=== PATIENT | female | born 1945 | race Caucasian/White ===

== ENCOUNTER 2017-08-14 19:16 | Inpatient (IN) | payer MEDICARE, OTHER ==
[2017-08-14 21:20] LABS: ADD MAN DIFF? NO
[2017-08-14 21:21] LABS: BASOPHILS % 0.4 % (0.0-2.0); EOSINOPHILS # 0.5 10^3/ul (0.0-0.5); EOSINOPHILS % 5.8 % (0.0-7.0); HEMATOCRIT 35.6 % (37.0-47.0); HEMOGLOBIN 11.5 g/dl (12.0-16.0); LYMPHOCYTES # 2.3 10^3/ul (0.8-2.9); MEAN CORPUSCULAR HEMOGLOBIN 30.3 pg (29.0-33.0); MEAN CORPUSCULAR HGB CONC 32.3 g/dl (32.0-37.0); MEAN CORPUSCULAR VOLUME 93.7 fl (82.0-101.0); MEAN PLATELET VOLUME 11.5 fl (7.4-10.4); MONOCYTE # 0.8 10^3/ul (0.3-0.9); MONOCYTES % 9.8 % (0.0-11.0); NEUTROPHIL # 4.6 10^3/ul (1.6-7.5); NEUTROPHILS % 55.4 % (39.0-77.0); PLATELET COUNT 227 10^3/UL (140-415); RED CELL DISTRIBUTION WIDTH 14.3 % (11.5-14.5)
[2017-08-14 21:21] LABS: WHITE BLOOD COUNT 8.3 10^3/ul (4.8-10.8)
[2017-08-14] MEDS: PIPER-TAZO 3.375 GM IV (PMX) 100 ML IVPB (21:37)
[2017-08-14 21:39] LABS: ALANINE AMINOTRANSFERASE 46 IU/L (13-69); ALBUMIN 3.9 g/dl (3.3-4.9); ALBUMIN/GLOBULIN RATIO 0.95; ALKALINE PHOSPHATASE 295 IU/L (42-121); ANION GAP 16 (8-16); ASPARTATE AMINO TRANSFERASE 39 IU/L (15-46); BILIRUBIN,INDIRECT 0.4 mg/dl (0-1.1); BILIRUBIN,TOTAL 0.4 mg/dl (0.2-1.3); BLOOD UREA NITROGEN 23 mg/dl (7-20); CALCIUM 9.5 mg/dl (8.4-10.2); CARBON DIOXIDE 24 mmol/L (21-31); CHLORIDE 105 mmol/L (97-110); CREATININE 0.98 mg/dl (0.44-1.00); GLUCOSE 212 mg/dl (70-220); LIPASE 184 U/L (23-300); SODIUM 139 mmol/L (135-144)
[2017-08-14 21:41] LABS: INR 0.98; PROTIME 13.1 Sec (11.9-14.9)
[2017-08-14 21:46] LABS: POTASSIUM 5.6 mmol/L (3.5-5.1)
[2017-08-14 22:27] LABS: ADD UMIC YES; UR ASCORBIC ACID NEGATIVE (NEGATIVE); UR BILIRUBIN (Dip) NEGATIVE (NEGATIVE); UR BLOOD (Dip) NEGATIVE (NEGATIVE); UR CLARITY CLOUDY (CLEAR); UR COLOR YELLOW (YELLOW); UR GLUCOSE (Dip) 1+ mg/dL (NEGATIVE); UR KETONES (Dip) NEGATIVE (NEGATIVE); UR LEUKOCYTE ESTERASE (Dip) TRACE Leu/ul (NEGATIVE); UR NITRITE (Dip) NEGATIVE (NEGATIVE); UR RBC 4 /HPF (0-5); UR SPECIFIC GRAVITY (Dip) 1.004 (1.003-1.030); UR SQUAMOUS EPITHELIAL CELL MANY /HPF (FEW); UR TOTAL PROTEIN (Dip) NEGATIVE (NEGATIVE); UR UROBILINOGEN (Dip) NEGATIVE (NEGATIVE); UR WBC 1 /HPF (0-5)
[2017-08-15] MEDS ORDERED: PENDING SANTYL ORDER FOR WOUND CARE XX (02:00)
[2017-08-15] MEDS: ACCU-CHEK XX (02:00)
[2017-08-15] MEDS ORDERED: ACETAMINOPHEN 325 MG TAB PO (02:00)
[2017-08-15] MEDS ORDERED: GLUCOSE GEL 15 GRAM TUBE BUCCAL (02:30)
[2017-08-15] MEDS ORDERED: DEXTROSE 50% 50 ML SYRINGE IV ×2 (02:30)
[2017-08-15] MEDS ORDERED: GLUCOSE GEL 15 GRAM TUBE PO ×2 (02:30)
[2017-08-15] MEDS ORDERED: GLUCAGON 1 MG INJ IM (02:30)
[2017-08-15 03:14] LABS: HEMOGLOBIN A1C 12.2 % (0-5.9)
[2017-08-15] MEDS: morphine 2 MG INJ IV (05:51)
[2017-08-15] MEDS: HEPARIN 5,000 UNIT/0.5 ML VIAL SC ×3 (05:55→22:37)
[2017-08-15] MEDS: INSULIN ASPART [NOVOLOG] 3 ML PEN SC ×7 (08:15→20:27)
[2017-08-15] MEDS ORDERED: INSULIN ASPART [NOVOLOG] 3 ML PEN SC ×5 (08:15→18:00)
[2017-08-15] MEDS: AMLODIPINE 10 MG TAB PO (08:20)
[2017-08-15] MEDS: METOPROLOL 50 MG TAB PO ×2 (09:00→20:25)
[2017-08-15] MEDS: LOSARTAN 50 MG TAB PO (09:25)
[2017-08-15] MEDS: ASPIRIN (EC) 81 MG TAB PO (09:26)
[2017-08-15] MEDS: ATORVASTATIN 20 MG TAB PO (09:26)
[2017-08-15] MEDS: DOCUSATE SODIUM 100 MG CAP PO ×2 (09:27→20:23)
[2017-08-15] MEDS: FUROSEMIDE 20 MG TAB PO ×2 (09:28→20:24)
[2017-08-15] MEDS: PIOGLITAZONE 30 MG TAB PO (10:21)
[2017-08-15] MEDS: BRIMONIDINE 0.2% 5 ML BTL BOTH EYES ×2 (12:20→20:22)
[2017-08-15] MEDS: MUPIROCIN 2% 22 GM OINT TOP (20:22)
[2017-08-15] MEDS: LATANOPROST 0.005% 2.5 ML OPH BOTH EYES (20:23)
[2017-08-15] MEDS: traZODone 50 MG TAB PO (20:24)
[2017-08-15] MEDS: GABAPENTIN 300 MG CAP PO (20:25)
[2017-08-15] MEDS: SODIUM HYPOCHLORITE (1/40) 1 APPLIC BTL IRR ×2 (20:26→20:31)
[2017-08-15] MEDS: INSULIN GLARGINE [LANtus] 3 ML PEN SC (20:30)
[2017-08-16] MEDS: ACCU-CHEK XX (02:00)
[2017-08-16] MEDS ORDERED: ACCU-CHEK XX (02:00)
[2017-08-16 05:44] LABS: ADD MAN DIFF? NO
[2017-08-16 05:47] LABS: BASOPHILS % 0.3 % (0.0-2.0); EOSINOPHILS # 0.4 10^3/ul (0.0-0.5); EOSINOPHILS % 6.3 % (0.0-7.0); HEMATOCRIT 32.9 % (37.0-47.0); HEMOGLOBIN 10.8 g/dl (12.0-16.0); LYMPHOCYTES # 2.7 10^3/ul (0.8-2.9); LYMPHOCYTES % 41.4 % (15.0-51.0); MEAN CORPUSCULAR HEMOGLOBIN 30.4 pg (29.0-33.0); MEAN CORPUSCULAR HGB CONC 32.8 g/dl (32.0-37.0); MEAN CORPUSCULAR VOLUME 92.7 fl (82.0-101.0); MEAN PLATELET VOLUME 10.7 fl (7.4-10.4); MONOCYTE # 0.6 10^3/ul (0.3-0.9); MONOCYTES % 9.5 % (0.0-11.0); NEUTROPHIL # 2.8 10^3/ul (1.6-7.5); NEUTROPHILS % 42.3 % (39.0-77.0); PLATELET COUNT 240 10^3/UL (140-415); RED BLOOD COUNT 3.55 10^6/ul (4.20-5.40); RED CELL DISTRIBUTION WIDTH 14.2 % (11.5-14.5)
[2017-08-16 05:47] LABS: WHITE BLOOD COUNT 6.5 10^3/ul (4.8-10.8)
[2017-08-16 06:34] LABS: ALANINE AMINOTRANSFERASE 42 IU/L (13-69); ALBUMIN 3.3 g/dl (3.3-4.9); ALKALINE PHOSPHATASE 203 IU/L (42-121); ANION GAP 14 (8-16); ASPARTATE AMINO TRANSFERASE 30 IU/L (15-46); BILIRUBIN,INDIRECT 0.3 mg/dl (0-1.1); BILIRUBIN,TOTAL 0.3 mg/dl (0.2-1.3); BLOOD UREA NITROGEN 14 mg/dl (7-20); CALCIUM 9.3 mg/dl (8.4-10.2); CARBON DIOXIDE 27 mmol/L (21-31); CHLORIDE 105 mmol/L (97-110); CHOL/HDL RATIO 3.7 RATIO; CHOLESTEROL 89 mg/dl (100-200); CREATININE 0.79 mg/dl (0.44-1.00); GLUCOSE 92 mg/dl (70-220); HDL CHOLESTEROL 24 mg/dl (33-92); LDL CHOLESTEROL,CALCULATED 45 mg/dl; MAGNESIUM 1.6 mg/dl (1.7-2.5); POTASSIUM 4.2 mmol/L (3.5-5.1); SODIUM 142 mmol/L (135-144); TOTAL PROTEIN 6.6 g/dl (6.1-8.1); TRIGLYCERIDES 100 mg/dl (0-149)
[2017-08-16] MEDS ORDERED: EPHEDrine SULFATE 50 MG/5 ML SYG (07:00)
[2017-08-16] MEDS ORDERED: CEFAZOLIN 1 GM INJ (07:00)
[2017-08-16 07:14] LABS: HEMOGLOBIN A1C 12.2 % (0-5.9)
[2017-08-16] MEDS: INSULIN ASPART [NOVOLOG] 3 ML PEN SC ×7 (08:15→21:00)
[2017-08-16] MEDS: DOCUSATE SODIUM 100 MG CAP PO ×2 (08:17→20:56)
[2017-08-16] MEDS: LOSARTAN 50 MG TAB PO (08:17)
[2017-08-16] MEDS: PIOGLITAZONE 30 MG TAB PO (08:17)
[2017-08-16] MEDS: ATORVASTATIN 20 MG TAB PO (08:18)
[2017-08-16] MEDS: ASPIRIN (EC) 81 MG TAB PO (08:18)
[2017-08-16] MEDS: FUROSEMIDE 20 MG TAB PO ×2 (08:18→20:57)
[2017-08-16] MEDS: METOPROLOL 50 MG TAB PO ×2 (08:18→20:57)
[2017-08-16] MEDS: AMLODIPINE 10 MG TAB PO (08:19)
[2017-08-16] MEDS: SODIUM HYPOCHLORITE (1/40) 1 APPLIC BTL IRR ×4 (09:00→21:00)
[2017-08-16] MEDS: BRIMONIDINE 0.2% 5 ML BTL BOTH EYES ×2 (09:12→21:53)
[2017-08-16] MEDS: MUPIROCIN 2% 22 GM OINT TOP ×3 (09:12→21:53)
[2017-08-16] MEDS: SOD CHLORIDE 0.9% 1,000 ML IV (10:25)
[2017-08-16] MEDS ORDERED: FENTAnyl 50 MCG/ML VIAL (14:56)
[2017-08-16] MEDS ORDERED: LIDOCAINE 100 MG SYRINGE (14:57)
[2017-08-16] MEDS ORDERED: PROPOFOL 20 ML (14:57)
[2017-08-16] MEDS ORDERED: ONDANSETRON 4 MG INJ (15:29)
[2017-08-16] MEDS ORDERED: METOCLOPRAMIDE 10 MG INJ (15:30)
[2017-08-16] MEDS ORDERED: FAMOTIDINE 20 MG INJ (15:30)
[2017-08-16] MEDS: LIDOCAINE 2% (MDV) 20 ML INJ (15:47)
[2017-08-16] MEDS ORDERED: HYDROmorphONE 1 MG/5 ML IV SYRINGE IV ×3 (16:19→16:30)
[2017-08-16] MEDS: HYDROmorphONE 1 MG/5 ML IV SYRINGE IV (16:29)
[2017-08-16] MEDS ORDERED: DIPHENHYDRAMINE 50 MG INJ IV (16:30)
[2017-08-16] MEDS ORDERED: OXYCODONE/ACETAMINOPHEN (5/325) TAB PO ×2 (16:30)
[2017-08-16] MEDS ORDERED: ACETAMINOPHEN 325 MG TAB PO (16:30)
[2017-08-16] MEDS ORDERED: KETOROLAC 15 MG INJ IV (16:30)
[2017-08-16] MEDS ORDERED: ONDANSETRON 4 MG INJ IV ×2 (16:30)
[2017-08-16] MEDS ORDERED: MEPERIDINE 25 MG INJ IV (16:30)
[2017-08-16] MEDS: INSULIN GLARGINE [LANtus] 3 ML PEN SC ×2 (20:00→22:09)
[2017-08-16] MEDS: traZODone 50 MG TAB PO (20:56)
[2017-08-16] MEDS: GABAPENTIN 300 MG CAP PO (20:56)
[2017-08-16] MEDS: LATANOPROST 0.005% 2.5 ML OPH BOTH EYES (20:58)
[2017-08-16] MEDS: HEPARIN 5,000 UNIT/0.5 ML VIAL SC (22:11)
[2017-08-17] MEDS: ACCU-CHEK XX (02:00)
[2017-08-17] MEDS: HEPARIN 5,000 UNIT/0.5 ML VIAL SC ×3 (06:04→22:18)
[2017-08-17] MEDS: PIOGLITAZONE 30 MG TAB PO (08:15)
[2017-08-17] MEDS: BRIMONIDINE 0.2% 5 ML BTL BOTH EYES ×2 (08:15→21:13)
[2017-08-17] MEDS: FUROSEMIDE 20 MG TAB PO ×2 (08:16→21:10)
[2017-08-17] MEDS: ATORVASTATIN 20 MG TAB PO (08:16)
[2017-08-17] MEDS: LOSARTAN 50 MG TAB PO (08:16)
[2017-08-17] MEDS: DOCUSATE SODIUM 100 MG CAP PO ×2 (08:16→21:09)
[2017-08-17] MEDS: AMLODIPINE 10 MG TAB PO (08:17)
[2017-08-17] MEDS: ASPIRIN (EC) 81 MG TAB PO (08:17)
[2017-08-17] MEDS: METOPROLOL 50 MG TAB PO ×2 (08:17→21:00)
[2017-08-17] MEDS: MUPIROCIN 2% 22 GM OINT TOP ×2 (08:18→20:05)
[2017-08-17] MEDS: INSULIN ASPART [NOVOLOG] 3 ML PEN SC ×7 (08:20→21:00)
[2017-08-17] MEDS: SODIUM HYPOCHLORITE (1/40) 1 APPLIC BTL IRR ×4 (08:23→21:00)
[2017-08-17] MEDS: CEFTRIAXONE 1 GM/50 ML (PMX) 50 ML IVPB (17:05)
[2017-08-17] MEDS: traZODone 50 MG TAB PO (21:09)
[2017-08-17] MEDS: GABAPENTIN 300 MG CAP PO (21:09)
[2017-08-17] MEDS: INSULIN GLARGINE [LANtus] 3 ML PEN SC (21:12)
[2017-08-17] MEDS: LATANOPROST 0.005% 2.5 ML OPH BOTH EYES (22:17)
[2017-08-17] MEDS: HYDROCODONE/APAP (5/325) TAB PO (22:27)
[2017-08-18] MEDS: ACCU-CHEK XX (02:00)
[2017-08-18] MEDS: HEPARIN 5,000 UNIT/0.5 ML VIAL SC ×2 (05:50→14:00)
[2017-08-18] MEDS: INSULIN ASPART [NOVOLOG] 3 ML PEN SC ×6 (08:08→17:41)
[2017-08-18] MEDS: BRIMONIDINE 0.2% 5 ML BTL BOTH EYES (08:13)
[2017-08-18] MEDS: SODIUM HYPOCHLORITE (1/40) 1 APPLIC BTL IRR ×3 (08:50→09:00)
[2017-08-18] MEDS: PIOGLITAZONE 30 MG TAB PO (08:51)
[2017-08-18] MEDS: ATORVASTATIN 20 MG TAB PO (08:51)
[2017-08-18] MEDS: DOCUSATE SODIUM 100 MG CAP PO (08:51)
[2017-08-18] MEDS: ASPIRIN (EC) 81 MG TAB PO (08:54)
[2017-08-18] MEDS: FUROSEMIDE 20 MG TAB PO (08:55)
[2017-08-18] MEDS: MUPIROCIN 2% 22 GM OINT TOP (09:00)
[2017-08-18] MEDS: METOPROLOL 50 MG TAB PO (09:00)
[2017-08-18] MEDS: morphine LIQ (10 MG/5 ML) CUP PO (11:03)
[2017-08-18] MEDS: LOSARTAN 50 MG TAB PO (11:16)
[2017-08-18] MEDS: AMLODIPINE 10 MG TAB PO (11:16)
[2017-08-18] MEDS: CEFTRIAXONE 1 GM/50 ML (PMX) 50 ML IVPB (16:30)
== END 2017-08-18 18:55 | disposition home health service (06) | DRG 623 ==
LOC: E/R 19:16 → MS2 22:17
PROC: 0JBR0ZZ Excision of Left Foot Subcutaneous Tissue and Fascia, Open Approach (ICD-10-PCS; principal; 2017-08-16 15:16)
DX: E11.621 Type 2 diabetes mellitus with foot ulcer (principal); L03.116 Cellulitis of left lower limb; Z68.42 Body mass index [BMI] 45.0-49.9, adult; L02.416 Cutaneous abscess of left lower limb; E11.65 Type 2 diabetes mellitus with hyperglycemia; E11.42 Type 2 diabetes mellitus with diabetic polyneuropathy; E78.5 Hyperlipidemia, unspecified; B95.61 Methicillin susceptible Staphylococcus aureus infection as the cause of diseases classified elsewhere; I10 Essential (primary) hypertension; E66.01 Morbid (severe) obesity due to excess calories; L97.529 Non-pressure chronic ulcer of other part of left foot with unspecified severity; Z85.3 Personal history of malignant neoplasm of breast; Z90.12 Acquired absence of left breast and nipple; Z79.4 Long term (current) use of insulin; Z79.82 Long term (current) use of aspirin
CPT/HCPCS: 36415; 71045; 71250; 73610; 73718; 80053; 80061; 81001; 82962; 83036; 83690; 83735; 84100; 85025; 85610; 85730; 87040; 87070; 87075; 87102; 87116; 96365; 96366; 97161; 99285-25

== ENCOUNTER 2017-09-07 22:00 | Emergency (ER) | payer MEDICARE, OTHER ==
[2017-09-07] MEDS: morphine 2 MG INJ IV (23:09)
[2017-09-07] MEDS: ONDANSETRON 4 MG INJ IV (23:10)
[2017-09-07 23:11] LABS: ADD MAN DIFF? NO
[2017-09-07 23:13] LABS: WHITE BLOOD COUNT 10.1 10^3/ul (4.8-10.8)
[2017-09-07 23:13] LABS: ABNORMAL IP MESSAGE 1; BASOPHILS % 0.4 % (0.0-2.0); EOSINOPHILS # 0.2 10^3/ul (0.0-0.5); EOSINOPHILS % 1.5 % (0.0-7.0); HEMATOCRIT 35.7 % (37.0-47.0); HEMOGLOBIN 11.8 g/dl (12.0-16.0); LYMPHOCYTES # 2.5 10^3/ul (0.8-2.9); LYMPHOCYTES % 24.3 % (15.0-51.0); MEAN CORPUSCULAR HEMOGLOBIN 30.7 pg (29.0-33.0); MEAN CORPUSCULAR HGB CONC 33.1 g/dl (32.0-37.0); MEAN PLATELET VOLUME 11.2 fl (7.4-10.4); MONOCYTE # 1.5 10^3/ul (0.3-0.9); MONOCYTES % 14.9 % (0.0-11.0); NEUTROPHIL # 5.9 10^3/ul (1.6-7.5); NEUTROPHILS % 58.6 % (39.0-77.0); NUCLEATED RED BLOOD CELLS% 0.2 /100WBC (0.0-0.0); PLATELET COUNT 121 10^3/UL (140-415); RED BLOOD COUNT 3.84 10^6/ul (4.20-5.40); RED CELL DISTRIBUTION WIDTH 14.9 % (11.5-14.5)
[2017-09-07 23:28] LABS: POSITIVE DIFF @See below
[2017-09-07 23:40] LABS: ALANINE AMINOTRANSFERASE 52 IU/L (13-69); ALBUMIN 3.5 g/dl (3.3-4.9); ALBUMIN/GLOBULIN RATIO 0.97; ALKALINE PHOSPHATASE 158 IU/L (42-121); ANION GAP 12 (8-16); ASPARTATE AMINO TRANSFERASE 84 IU/L (15-46); BILIRUBIN,INDIRECT 0.7 mg/dl (0-1.1); BILIRUBIN,TOTAL 0.7 mg/dl (0.2-1.3); BLOOD UREA NITROGEN 18 mg/dl (7-20); CALCIUM 8.7 mg/dl (8.4-10.2); CARBON DIOXIDE 25 mmol/L (21-31); CHLORIDE 103 mmol/L (97-110); CREATININE 0.75 mg/dl (0.44-1.00); GLUCOSE 239 mg/dl (70-220); LIPASE 60 U/L (23-300); POTASSIUM 4.5 mmol/L (3.5-5.1); SODIUM 135 mmol/L (135-144); TOTAL PROTEIN 7.1 g/dl (6.1-8.1)
[2017-09-08 00:51] LABS: URINE PH (Dip) POC 5.5 (5.0-8.5)
[2017-09-08 00:51] LABS: URINE BLOOD (Dip) POC Trace-lysed (NEGATIVE); URINE KETONES (Dip) POC Trace (NEGATIVE); URINE LEUKOCYTE EST (Dip) POC 1+ (NEGATIVE); URINE NITRITE (Dip) POC Negative (NEGATIVE); URINE TOTAL PROTEIN POC 1+ (NEGATIVE)
[2017-09-08 01:06] LABS: OCCULT BLOOD STOOL NEGATIVE (NEGATIVE)
[2017-09-08] MEDS: metroNIDAZOLE 500 MG TAB PO (01:52)
[2017-09-08] MEDS: CIPROFLOXACIN 500 MG TAB PO (01:52)
== END 2017-09-08 02:45 | disposition home or self-care (01) ==
LOC: E/R 09-08 02:45
DX: K62.89 Other specified diseases of anus and rectum (principal); N39.0 Urinary tract infection, site not specified; D64.9 Anemia, unspecified; D69.6 Thrombocytopenia, unspecified; R94.5 Abnormal results of liver function studies; I10 Essential (primary) hypertension; E11.9 Type 2 diabetes mellitus without complications; E66.8 Other obesity; Z85.3 Personal history of malignant neoplasm of breast; Z79.4 Long term (current) use of insulin; Z79.82 Long term (current) use of aspirin; Z68.42 Body mass index [BMI] 45.0-49.9, adult
CPT/HCPCS: 36415; 74176; 80053; 81003; 82270; 82962; 83690; 85025; 87045; 96374; 96375; 99285-25

== ENCOUNTER 2017-09-17 13:44 | Inpatient (IN) | payer MEDICARE, OTHER ==
[2017-09-17] MEDS: ONDANSETRON 4 MG INJ IV ×2 (17:34→21:31)
[2017-09-17 18:16] LABS: ADD UMIC YES; UR ASCORBIC ACID NEGATIVE (NEGATIVE); UR BACTERIA FEW /HPF (NONE SEEN); UR BILIRUBIN (Dip) NEGATIVE (NEGATIVE); UR BLOOD (Dip) NEGATIVE (NEGATIVE); UR CLARITY CLEAR (CLEAR); UR COLOR YELLOW (YELLOW); UR GLUCOSE (Dip) 1+ mg/dL (NEGATIVE); UR KETONES (Dip) TRACE mg/dL (NEGATIVE); UR LEUKOCYTE ESTERASE (Dip) 1+ Leu/ul (NEGATIVE); UR MUCUS FEW /HPF (NONE SEEN); UR NITRITE (Dip) NEGATIVE (NEGATIVE); UR RBC 1 /HPF (0-5); UR SPECIFIC GRAVITY (Dip) 1.015 (1.003-1.030); UR SQUAMOUS EPITHELIAL CELL FEW /HPF (FEW); UR TOTAL PROTEIN (Dip) NEGATIVE (NEGATIVE); UR UROBILINOGEN (Dip) 1+ mg/dL (NEGATIVE); UR WBC 3 /HPF (0-5)
[2017-09-17 18:36] LABS: ADD MAN DIFF? NO
[2017-09-17 18:40] LABS: BASOPHILS % 0.5 % (0.0-2.0); EOSINOPHILS # 0.2 10^3/ul (0.0-0.5); EOSINOPHILS % 1.8 % (0.0-7.0); HEMATOCRIT 38.8 % (37.0-47.0); HEMOGLOBIN 12.4 g/dl (12.0-16.0); LYMPHOCYTES # 2.2 10^3/ul (0.8-2.9); LYMPHOCYTES % 26.3 % (15.0-51.0); MEAN CORPUSCULAR HEMOGLOBIN 29.7 pg (29.0-33.0); MEAN PLATELET VOLUME 10.5 fl (7.4-10.4); MONOCYTE # 1.2 10^3/ul (0.3-0.9); MONOCYTES % 13.9 % (0.0-11.0); NEUTROPHIL # 4.8 10^3/ul (1.6-7.5); NEUTROPHILS % 57.3 % (39.0-77.0); PLATELET COUNT 210 10^3/UL (140-415); RED BLOOD COUNT 4.17 10^6/ul (4.20-5.40); RED CELL DISTRIBUTION WIDTH 15.3 % (11.5-14.5)
[2017-09-17 18:40] LABS: WHITE BLOOD COUNT 8.4 10^3/ul (4.8-10.8)
[2017-09-17 18:58] LABS: ALANINE AMINOTRANSFERASE 22 IU/L (13-69); ALBUMIN 3.5 g/dl (3.3-4.9); ALBUMIN/GLOBULIN RATIO 0.92; ALKALINE PHOSPHATASE 115 IU/L (42-121); ANION GAP 16 (8-16); ASPARTATE AMINO TRANSFERASE 26 IU/L (15-46); BILIRUBIN,INDIRECT 0.8 mg/dl (0-1.1); BILIRUBIN,TOTAL 0.8 mg/dl (0.2-1.3); BLOOD UREA NITROGEN 15 mg/dl (7-20); CALCIUM 9.1 mg/dl (8.4-10.2); CARBON DIOXIDE 22 mmol/L (21-31); CHLORIDE 107 mmol/L (97-110); CREATININE 0.91 mg/dl (0.44-1.00); GLUCOSE 193 mg/dl (70-220); LIPASE 113 U/L (23-300); POTASSIUM 4.4 mmol/L (3.5-5.1); SODIUM 141 mmol/L (135-144); TOTAL PROTEIN 7.3 g/dl (6.1-8.1)
[2017-09-17 19:10] LABS: TROPONIN-I < 0.010 ng/ml (0.000-0.120)
[2017-09-17] MEDS: morphine 4 MG/ML VIAL IV (20:55)
[2017-09-17] MEDS: CEFTRIAXONE 1 GM/50 ML (PMX) 50 ML IVPB (20:55)
[2017-09-17 21:44] LABS: LACTIC ACID 1.9 mmol/L (0.5-2.0)
[2017-09-17] MEDS ORDERED: ONDANSETRON 4 MG INJ IV (23:00)
[2017-09-17] MEDS: DEXTROSE 5%-0.45% NACL 1,000 ML IV (23:49)
[2017-09-18] MEDS ORDERED: LIDOCAINE 2% (SDV) 5 ML INJ
[2017-09-18] MEDS ORDERED: FENTAnyl 50 MCG/ML VIAL (00:52)
[2017-09-18] MEDS ORDERED: ROPIVACAINE 0.5 % 30 ML VIAL (00:52)
[2017-09-18] MEDS: INSULIN ASPART [NOVOLOG] 3 ML PEN SC ×7 (01:00→20:40)
[2017-09-18] MEDS ORDERED: SUCCINYLCHOLINE CHLORIDE 100 MG/5 ML SYG IV (01:30)
[2017-09-18] MEDS ORDERED: METOCLOPRAMIDE 10 MG INJ IV (01:30)
[2017-09-18] MEDS ORDERED: CEFAZOLIN 1 GM INJ (01:30)
[2017-09-18] MEDS ORDERED: FENTAnyl 50 MCG/ML VIAL IV (01:30)
[2017-09-18] MEDS ORDERED: SUGAMMADEX SODIUM 200 MG/2 ML VIAL IV (01:30)
[2017-09-18] MEDS ORDERED: ONDANSETRON 4 MG INJ IV (01:30)
[2017-09-18] MEDS ORDERED: DIPHENHYDRAMINE 50 MG INJ IV (01:30)
[2017-09-18] MEDS ORDERED: PROPOFOL 20 ML (01:30)
[2017-09-18] MEDS ORDERED: ROCURONIUM 50 MG INJ (01:30)
[2017-09-18] MEDS ORDERED: MEPERIDINE 25 MG INJ IV (01:30)
[2017-09-18] MEDS ORDERED: HYDROmorphONE 1 MG/5 ML IV SYRINGE IV ×2 (01:30)
[2017-09-18] MEDS ORDERED: ALBUTEROL 0.083% (NEB) 2.5 MG/3 ML AMP HHN (01:30)
[2017-09-18] MEDS: FENTAnyl 50 MCG/ML VIAL IV (02:39)
[2017-09-18] MEDS: DEXTROSE 5%-0.45% NACL 1,000 ML IV ×2 (04:25→08:56)
[2017-09-18] MEDS: morphine 2 MG INJ IV (12:46)
[2017-09-18] MEDS ORDERED: DULAGLUTIDE 0.75 MG SQ (15:30)
[2017-09-18] MEDS ORDERED: GLUCOSE GEL 15 GRAM TUBE PO ×2 (15:30)
[2017-09-18] MEDS ORDERED: GLUCAGON 1 MG INJ IM (15:30)
[2017-09-18] MEDS ORDERED: LOSARTAN 50 MG TAB PO (15:30)
[2017-09-18] MEDS ORDERED: DEXTROSE 50% 50 ML SYRINGE IV (15:30)
[2017-09-18] MEDS: BENAZEPRIL 40 MG TAB PO (15:38)
[2017-09-18] MEDS: ENOXAPARIN 40 MG/0.4 ML SYG SC (15:39)
[2017-09-18] MEDS ORDERED: CIPROFLOXACIN 500 MG TAB PO (18:00)
[2017-09-18] MEDS: PIOGLITAZONE 30 MG TAB PO (18:01)
[2017-09-18] MEDS: [UNRECOGNIZED DRUG - REMARK] XX (20:30)
[2017-09-18] MEDS: ATORVASTATIN 20 MG TAB PO (20:35)
[2017-09-18] MEDS: GABAPENTIN 300 MG CAP PO (20:35)
[2017-09-18] MEDS: BIMATOPROST 0.01% 2.5 ML BTL BOTH EYES (20:39)
[2017-09-18] MEDS: DOCUSATE SODIUM 100 MG CAP PO (20:39)
[2017-09-18] MEDS: BRIMONIDINE 0.2% 5 ML BTL BOTH EYES (20:39)
[2017-09-18] MEDS: traZODone 50 MG TAB PO (20:40)
[2017-09-18] MEDS: INSULIN GLARGINE [LANTus] (100 UNITS/ML) SYG SC (20:53)
[2017-09-18] MEDS ORDERED: INSULIN GLARGINE [LANTus] (100 UNITS/ML) SYG SC (21:00)
[2017-09-18] MEDS: METOPROLOL 50 MG TAB PO (21:00)
[2017-09-19] MEDS: [UNRECOGNIZED DRUG - REMARK] XX (04:30)
[2017-09-19 05:11] LABS: ADD MAN DIFF? NO
[2017-09-19 05:14] LABS: WHITE BLOOD COUNT 5.4 10^3/ul (4.8-10.8)
[2017-09-19 05:14] LABS: BASOPHILS % 0.6 % (0.0-2.0); EOSINOPHILS # 0.3 10^3/ul (0.0-0.5); EOSINOPHILS % 5.2 % (0.0-7.0); HEMATOCRIT 32.8 % (37.0-47.0); HEMOGLOBIN 10.5 g/dl (12.0-16.0); LYMPHOCYTES # 1.5 10^3/ul (0.8-2.9); LYMPHOCYTES % 28.2 % (15.0-51.0); MEAN CORPUSCULAR HEMOGLOBIN 29.6 pg (29.0-33.0); MEAN CORPUSCULAR VOLUME 92.4 fl (82.0-101.0); MEAN PLATELET VOLUME 10.8 fl (7.4-10.4); MONOCYTE # 0.8 10^3/ul (0.3-0.9); MONOCYTES % 14.2 % (0.0-11.0); NEUTROPHIL # 2.8 10^3/ul (1.6-7.5); NEUTROPHILS % 51.2 % (39.0-77.0); PLATELET COUNT 184 10^3/UL (140-415); RED BLOOD COUNT 3.55 10^6/ul (4.20-5.40); RED CELL DISTRIBUTION WIDTH 15.4 % (11.5-14.5)
[2017-09-19 06:01] LABS: ANION GAP 9 (8-16); BLOOD UREA NITROGEN 12 mg/dl (7-20); CALCIUM 8.3 mg/dl (8.4-10.2); CARBON DIOXIDE 25 mmol/L (21-31); CHLORIDE 105 mmol/L (97-110); CREATININE 0.99 mg/dl (0.44-1.00); GLUCOSE 120 mg/dl (70-220); POTASSIUM 3.6 mmol/L (3.5-5.1); SODIUM 135 mmol/L (135-144)
[2017-09-19] MEDS: INSULIN ASPART [NOVOLOG] 3 ML PEN SC ×9 (07:20→21:00)
[2017-09-19] MEDS: BRIMONIDINE 0.2% 5 ML BTL BOTH EYES ×2 (08:21→20:51)
[2017-09-19] MEDS: MELOXICAM 15 MG TAB PO (08:22)
[2017-09-19] MEDS: LINAGLIPTIN 5 MG TABLET PO (08:22)
[2017-09-19] MEDS: PIOGLITAZONE 30 MG TAB PO (08:22)
[2017-09-19] MEDS: DOCUSATE SODIUM 100 MG CAP PO ×3 (08:22→20:50)
[2017-09-19] MEDS: BENAZEPRIL 40 MG TAB PO (08:23)
[2017-09-19] MEDS: METOPROLOL 50 MG TAB PO ×3 (08:23→20:54)
[2017-09-19] MEDS: ENOXAPARIN 40 MG/0.4 ML SYG SC (08:24)
[2017-09-19] MEDS: SOD CHLORIDE 0.9% 1,000 ML IV ×3 (11:28→21:11)
[2017-09-19] MEDS: ATORVASTATIN 20 MG TAB PO (20:52)
[2017-09-19] MEDS: traZODone 50 MG TAB PO (20:53)
[2017-09-19] MEDS: GABAPENTIN 300 MG CAP PO (20:53)
[2017-09-19] MEDS: BIMATOPROST 0.01% 2.5 ML BTL BOTH EYES (21:00)
[2017-09-19] MEDS: INSULIN GLARGINE [LANTus] (100 UNITS/ML) SYG SC (21:07)
[2017-09-19] MEDS: morphine 2 MG INJ IV (23:00)
[2017-09-20] MEDS: SOD CHLORIDE 0.9% 1,000 ML IV ×3 (03:30→19:30)
[2017-09-20 05:46] LABS: ADD MAN DIFF? NO
[2017-09-20 05:59] LABS: WHITE BLOOD COUNT 5.6 10^3/ul (4.8-10.8)
[2017-09-20 05:59] LABS: BASOPHILS % 0.5 % (0.0-2.0); EOSINOPHILS # 0.3 10^3/ul (0.0-0.5); EOSINOPHILS % 5.7 % (0.0-7.0); HEMATOCRIT 29.5 % (37.0-47.0); HEMOGLOBIN 9.6 g/dl (12.0-16.0); LYMPHOCYTES # 1.7 10^3/ul (0.8-2.9); LYMPHOCYTES % 30.3 % (15.0-51.0); MEAN CORPUSCULAR HEMOGLOBIN 29.8 pg (29.0-33.0); MEAN CORPUSCULAR HGB CONC 32.5 g/dl (32.0-37.0); MEAN CORPUSCULAR VOLUME 91.6 fl (82.0-101.0); MONOCYTE # 0.7 10^3/ul (0.3-0.9); NEUTROPHIL # 2.8 10^3/ul (1.6-7.5); NEUTROPHILS % 50.1 % (39.0-77.0); PLATELET COUNT 161 10^3/UL (140-415); RED BLOOD COUNT 3.22 10^6/ul (4.20-5.40); RED CELL DISTRIBUTION WIDTH 15.3 % (11.5-14.5)
[2017-09-20 06:48] LABS: ANION GAP 7 (8-16); BLOOD UREA NITROGEN 11 mg/dl (7-20); CALCIUM 7.2 mg/dl (8.4-10.2); CARBON DIOXIDE 22 mmol/L (21-31); CHLORIDE 114 mmol/L (97-110); CREATININE 0.73 mg/dl (0.44-1.00); GLUCOSE 101 mg/dl (70-220); POTASSIUM 3.2 mmol/L (3.5-5.1); SODIUM 140 mmol/L (135-144)
[2017-09-20] MEDS: INSULIN ASPART [NOVOLOG] 3 ML PEN SC ×7 (07:25→20:20)
[2017-09-20] MEDS: BRIMONIDINE 0.2% 5 ML BTL BOTH EYES ×2 (08:24→20:48)
[2017-09-20] MEDS: DOCUSATE SODIUM 100 MG CAP PO ×2 (08:25→20:49)
[2017-09-20] MEDS: MELOXICAM 15 MG TAB PO (08:25)
[2017-09-20] MEDS: PIOGLITAZONE 30 MG TAB PO (08:25)
[2017-09-20] MEDS: LINAGLIPTIN 5 MG TABLET PO (08:25)
[2017-09-20] MEDS: METOPROLOL 50 MG TAB PO (08:26)
[2017-09-20] MEDS: ENOXAPARIN 40 MG/0.4 ML SYG SC (08:31)
[2017-09-20] MEDS: POTASSIUM CHLORIDE (SR) 10 MEQ TAB PO (13:23)
[2017-09-20 14:13] LABS: TROPONIN-I < 0.010 ng/ml (0.000-0.120)
[2017-09-20 16:43] LABS: ADD UMIC YES; UR ASCORBIC ACID NEGATIVE (NEGATIVE); UR BACTERIA FEW /HPF (NONE SEEN); UR BILIRUBIN (Dip) NEGATIVE (NEGATIVE); UR BLOOD (Dip) NEGATIVE (NEGATIVE); UR CLARITY CLOUDY (CLEAR); UR COLOR YELLOW (YELLOW); UR GLUCOSE (Dip) NEGATIVE (NEGATIVE); UR KETONES (Dip) NEGATIVE (NEGATIVE); UR LEUKOCYTE ESTERASE (Dip) 1+ Leu/ul (NEGATIVE); UR NITRITE (Dip) NEGATIVE (NEGATIVE); UR RBC 1 /HPF (0-5); UR SPECIFIC GRAVITY (Dip) 1.006 (1.003-1.030); UR SQUAMOUS EPITHELIAL CELL FEW /HPF (FEW); UR TOTAL PROTEIN (Dip) NEGATIVE (NEGATIVE); UR UROBILINOGEN (Dip) NEGATIVE (NEGATIVE); UR WBC 2 /HPF (0-5)
[2017-09-20] MEDS: INSULIN GLARGINE [LANTus] (100 UNITS/ML) SYG SC (20:47)
[2017-09-20] MEDS: traZODone 50 MG TAB PO (20:49)
[2017-09-20] MEDS: GABAPENTIN 300 MG CAP PO (20:49)
[2017-09-20] MEDS: ATORVASTATIN 20 MG TAB PO (20:49)
[2017-09-20] MEDS: BIMATOPROST 0.01% 2.5 ML BTL BOTH EYES (20:50)
[2017-09-21] MEDS: SOD CHLORIDE 0.9% 1,000 ML IV ×2 (03:30→11:30)
[2017-09-21] MEDS: INSULIN ASPART [NOVOLOG] 3 ML PEN SC ×7 (07:25→21:00)
[2017-09-21 07:47] LABS: ADD MAN DIFF? NO
[2017-09-21 07:54] LABS: WHITE BLOOD COUNT 7.2 10^3/ul (4.8-10.8)
[2017-09-21 07:54] LABS: BASOPHILS % 0.6 % (0.0-2.0); EOSINOPHILS # 0.3 10^3/ul (0.0-0.5); EOSINOPHILS % 3.8 % (0.0-7.0); HEMATOCRIT 32.3 % (37.0-47.0); HEMOGLOBIN 10.4 g/dl (12.0-16.0); LYMPHOCYTES # 2.5 10^3/ul (0.8-2.9); LYMPHOCYTES % 34.4 % (15.0-51.0); MEAN CORPUSCULAR HGB CONC 32.2 g/dl (32.0-37.0); MEAN CORPUSCULAR VOLUME 93.1 fl (82.0-101.0); MONOCYTE # 0.9 10^3/ul (0.3-0.9); MONOCYTES % 11.9 % (0.0-11.0); NEUTROPHIL # 3.5 10^3/ul (1.6-7.5); NEUTROPHILS % 48.9 % (39.0-77.0); PLATELET COUNT 176 10^3/UL (140-415); RED BLOOD COUNT 3.47 10^6/ul (4.20-5.40); RED CELL DISTRIBUTION WIDTH 15.5 % (11.5-14.5)
[2017-09-21] MEDS: DOCUSATE SODIUM 100 MG CAP PO ×2 (08:10→21:00)
[2017-09-21] MEDS: PIOGLITAZONE 30 MG TAB PO (08:10)
[2017-09-21] MEDS: MELOXICAM 15 MG TAB PO (08:10)
[2017-09-21] MEDS: BRIMONIDINE 0.2% 5 ML BTL BOTH EYES ×2 (08:11→21:15)
[2017-09-21] MEDS: LINAGLIPTIN 5 MG TABLET PO (08:11)
[2017-09-21 08:13] LABS: ANION GAP 6 (8-16); BLOOD UREA NITROGEN 10 mg/dl (7-20); CALCIUM 8.3 mg/dl (8.4-10.2); CARBON DIOXIDE 24 mmol/L (21-31); CHLORIDE 114 mmol/L (97-110); GLUCOSE 82 mg/dl (70-220); POTASSIUM 4.1 mmol/L (3.5-5.1); SODIUM 140 mmol/L (135-144)
[2017-09-21] MEDS: ENOXAPARIN 40 MG/0.4 ML SYG SC (08:20)
[2017-09-21] MEDS ORDERED: LOPERAMIDE 2 MG CAP PO (13:30)
[2017-09-21] MEDS: BIMATOPROST 0.01% 2.5 ML BTL BOTH EYES (21:16)
[2017-09-21] MEDS: GABAPENTIN 300 MG CAP PO (21:16)
[2017-09-21] MEDS: traZODone 50 MG TAB PO (21:16)
[2017-09-21] MEDS: ATORVASTATIN 20 MG TAB PO (21:16)
[2017-09-21] MEDS: INSULIN GLARGINE [LANTus] (100 UNITS/ML) SYG SC (21:20)
[2017-09-21] MEDS ORDERED: morphine LIQ (10 MG/5 ML) CUP PO (22:30)
[2017-09-21] MEDS ORDERED: morphine 2 MG INJ IV (23:00)
[2017-09-22] MEDS: INSULIN ASPART [NOVOLOG] 3 ML PEN SC ×6 (07:25→16:51)
[2017-09-22 08:13] LABS: ADD MAN DIFF? NO
[2017-09-22 08:16] LABS: BASOPHILS % 0.4 % (0.0-2.0); EOSINOPHILS # 0.3 10^3/ul (0.0-0.5); EOSINOPHILS % 3.6 % (0.0-7.0); HEMATOCRIT 32.2 % (37.0-47.0); HEMOGLOBIN 10.4 g/dl (12.0-16.0); LYMPHOCYTES # 2.7 10^3/ul (0.8-2.9); LYMPHOCYTES % 38.9 % (15.0-51.0); MEAN CORPUSCULAR HEMOGLOBIN 30.1 pg (29.0-33.0); MEAN CORPUSCULAR HGB CONC 32.3 g/dl (32.0-37.0); MEAN CORPUSCULAR VOLUME 93.1 fl (82.0-101.0); MEAN PLATELET VOLUME 10.8 fl (7.4-10.4); MONOCYTE # 0.8 10^3/ul (0.3-0.9); MONOCYTES % 11.1 % (0.0-11.0); NEUTROPHIL # 3.2 10^3/ul (1.6-7.5); NEUTROPHILS % 45.7 % (39.0-77.0); PLATELET COUNT 169 10^3/UL (140-415); RED BLOOD COUNT 3.46 10^6/ul (4.20-5.40); RED CELL DISTRIBUTION WIDTH 15.8 % (11.5-14.5)
[2017-09-22] MEDS: BRIMONIDINE 0.2% 5 ML BTL BOTH EYES ×2 (08:28→20:55)
[2017-09-22] MEDS: PIOGLITAZONE 30 MG TAB PO (08:36)
[2017-09-22] MEDS: LINAGLIPTIN 5 MG TABLET PO (08:36)
[2017-09-22] MEDS: DOCUSATE SODIUM 100 MG CAP PO ×3 (08:36→20:55)
[2017-09-22] MEDS: MELOXICAM 15 MG TAB PO (08:36)
[2017-09-22] MEDS: ENOXAPARIN 40 MG/0.4 ML SYG SC (08:37)
[2017-09-22 08:46] LABS: ANION GAP 7 (8-16); BLOOD UREA NITROGEN 10 mg/dl (7-20); CALCIUM 8.7 mg/dl (8.4-10.2); CARBON DIOXIDE 26 mmol/L (21-31); CHLORIDE 113 mmol/L (97-110); CREATININE 0.71 mg/dl (0.44-1.00); GLUCOSE 83 mg/dl (70-220); POTASSIUM 4.1 mmol/L (3.5-5.1); SODIUM 142 mmol/L (135-144)
[2017-09-22] MEDS: GLUCOSE GEL 15 GRAM TUBE BUCCAL (17:00)
[2017-09-22] MEDS: DEXTROSE 50% 50 ML SYRINGE IV (17:03)
[2017-09-22] MEDS: GABAPENTIN 300 MG CAP PO (20:55)
[2017-09-22] MEDS: BIMATOPROST 0.01% 2.5 ML BTL BOTH EYES (20:55)
[2017-09-22] MEDS: ATORVASTATIN 20 MG TAB PO (20:55)
[2017-09-22] MEDS: traZODone 50 MG TAB PO (20:55)
[2017-09-22] MEDS: Insulin NOVOLOG SS MILD Algorithm (SS with meals and bedtime) SC (20:57)
[2017-09-22] MEDS: INSULIN GLARGINE [LANTus] (100 UNITS/ML) SYG SC (20:57)
[2017-09-23] MEDS: ACCUCHECK AT 2AM (Patients on SS coverage) XX ×2 (01:56→20:19)
[2017-09-23 06:40] LABS: ADD MAN DIFF? NO
[2017-09-23 06:50] LABS: WHITE BLOOD COUNT 6.5 10^3/ul (4.8-10.8)
[2017-09-23 06:50] LABS: BASOPHILS % 0.5 % (0.0-2.0); EOSINOPHILS # 0.3 10^3/ul (0.0-0.5); EOSINOPHILS % 3.8 % (0.0-7.0); HEMATOCRIT 32.7 % (37.0-47.0); HEMOGLOBIN 10.5 g/dl (12.0-16.0); LYMPHOCYTES # 2.6 10^3/ul (0.8-2.9); LYMPHOCYTES % 40.6 % (15.0-51.0); MEAN CORPUSCULAR HEMOGLOBIN 29.7 pg (29.0-33.0); MEAN CORPUSCULAR HGB CONC 32.1 g/dl (32.0-37.0); MEAN CORPUSCULAR VOLUME 92.4 fl (82.0-101.0); MEAN PLATELET VOLUME 11.2 fl (7.4-10.4); MONOCYTE # 0.7 10^3/ul (0.3-0.9); MONOCYTES % 11.4 % (0.0-11.0); NEUTROPHIL # 2.8 10^3/ul (1.6-7.5); NEUTROPHILS % 43.4 % (39.0-77.0); PLATELET COUNT 166 10^3/UL (140-415); RED BLOOD COUNT 3.54 10^6/ul (4.20-5.40); RED CELL DISTRIBUTION WIDTH 15.9 % (11.5-14.5)
[2017-09-23 07:25] LABS: ANION GAP 5 (8-16); BLOOD UREA NITROGEN 11 mg/dl (7-20); CALCIUM 8.6 mg/dl (8.4-10.2); CARBON DIOXIDE 25 mmol/L (21-31); CHLORIDE 113 mmol/L (97-110); CREATININE 0.85 mg/dl (0.44-1.00); GLUCOSE 119 mg/dl (70-220); POTASSIUM 4.2 mmol/L (3.5-5.1); SODIUM 139 mmol/L (135-144)
[2017-09-23] MEDS: INSULIN ASPART [NOVOLOG] 3 ML PEN SC ×3 (08:16→18:00)
[2017-09-23] MEDS: Insulin NOVOLOG SS MILD Algorithm (SS with meals and bedtime) SC ×4 (08:19→20:07)
[2017-09-23] MEDS: PIOGLITAZONE 30 MG TAB PO (08:20)
[2017-09-23] MEDS: ENOXAPARIN 40 MG/0.4 ML SYG SC (08:20)
[2017-09-23] MEDS: MELOXICAM 15 MG TAB PO (08:20)
[2017-09-23] MEDS: LINAGLIPTIN 5 MG TABLET PO (08:20)
[2017-09-23] MEDS: BRIMONIDINE 0.2% 5 ML BTL BOTH EYES ×2 (08:21→20:07)
[2017-09-23] MEDS: DOCUSATE SODIUM 100 MG CAP PO (08:28)
[2017-09-23] MEDS: INSULIN GLARGINE [LANTus] (100 UNITS/ML) SYG SC (20:06)
[2017-09-23] MEDS: ATORVASTATIN 20 MG TAB PO (20:07)
[2017-09-23] MEDS: GABAPENTIN 300 MG CAP PO (20:07)
[2017-09-23] MEDS: BIMATOPROST 0.01% 2.5 ML BTL BOTH EYES (20:08)
[2017-09-23] MEDS: traZODone 50 MG TAB PO (20:08)
[2017-09-24] MEDS: Insulin NOVOLOG SS MILD Algorithm (SS with meals and bedtime) SC ×2 (07:30→12:02)
[2017-09-24] MEDS: INSULIN ASPART [NOVOLOG] 3 ML PEN SC ×2 (08:11→12:03)
[2017-09-24] MEDS: PIOGLITAZONE 30 MG TAB PO (08:30)
[2017-09-24] MEDS: BRIMONIDINE 0.2% 5 ML BTL BOTH EYES (08:30)
[2017-09-24] MEDS: LINAGLIPTIN 5 MG TABLET PO (08:30)
[2017-09-24] MEDS: MELOXICAM 15 MG TAB PO (08:30)
[2017-09-24] MEDS: ENOXAPARIN 40 MG/0.4 ML SYG SC (08:31)
== END 2017-09-24 17:04 | disposition home or self-care (01) | DRG 342 ==
LOC: TEL 09-19 11:36 → PP2 09-23 17:20 → E/R 13:44 → MS1 20:53
PROC: 0DTJ4ZZ Resection of Appendix, Percutaneous Endoscopic Approach (ICD-10-PCS; principal; 2017-09-18 00:30)
DX: K35.80 Unspecified acute appendicitis (principal); Z68.41 Body mass index [BMI] 40.0-44.9, adult; L97.329 Non-pressure chronic ulcer of left ankle with unspecified severity; E66.01 Morbid (severe) obesity due to excess calories; I95.2 Hypotension due to drugs; E11.65 Type 2 diabetes mellitus with hyperglycemia; Z85.3 Personal history of malignant neoplasm of breast; K62.89 Other specified diseases of anus and rectum; I10 Essential (primary) hypertension; R19.7 Diarrhea, unspecified
CPT/HCPCS: 71045; 74176; 80048; 80053; 81001; 82962; 83605; 83690; 84484; 85025; 87040; 88304; 93005; 93306; 96374; 97110; 97116; 97162; 97530; 99217; 99285-25; G0378

== ENCOUNTER 2018-08-18 16:49 | Emergency (ER) | payer MEDICARE, OTHER ==
[2018-08-18 17:32] LABS: ADD MAN DIFF? NO
[2018-08-18 17:37] LABS: WHITE BLOOD COUNT 8.6 10^3/ul (4.8-10.8)
[2018-08-18 17:37] LABS: ABNORMAL IP MESSAGE 1; HEMATOCRIT 32.6 % (37.0-47.0); HEMOGLOBIN 10.7 g/dl (12.0-16.0); MEAN CORPUSCULAR HEMOGLOBIN 31.5 pg (29.0-33.0); MEAN CORPUSCULAR HGB CONC 32.8 g/dl (32.0-37.0); MEAN CORPUSCULAR VOLUME 95.9 fl (82.0-101.0); MEAN PLATELET VOLUME 10.9 fl (7.4-10.4); RED CELL DISTRIBUTION WIDTH 14.6 % (11.5-14.5)
[2018-08-18 17:46] LABS: PLATELET COUNT 99 10^3/UL (140-415); POSITIVE DIFF @See below
[2018-08-18 18:03] LABS: ALANINE AMINOTRANSFERASE 41 IU/L (13-69); ALBUMIN 3.7 g/dl (3.3-4.9); ALBUMIN/GLOBULIN RATIO 1.05; ALKALINE PHOSPHATASE 105 IU/L (42-121); ANION GAP 8 (5-13); ASPARTATE AMINO TRANSFERASE 45 IU/L (15-46); BILIRUBIN,INDIRECT 0.6 mg/dl (0-1.1); BILIRUBIN,TOTAL 0.6 mg/dl (0.2-1.3); BLOOD UREA NITROGEN 31 mg/dl (7-20); CALCIUM 8.9 mg/dl (8.4-10.2); CARBON DIOXIDE 23 mmol/L (21-31); CHLORIDE 109 mmol/L (97-110); GLUCOSE 100 mg/dl (70-220); LIPASE 142 U/L (23-300); POTASSIUM 5.2 mmol/L (3.5-5.1); SODIUM 140 mmol/L (135-144); TOTAL PROTEIN 7.2 g/dl (6.1-8.1)
[2018-08-18 18:13] LABS: TROPONIN-I < 0.012 ng/ml (0.000-0.120)
[2018-08-18 18:34] LABS: BASOPHILS % 0.2 % (0.0-2.0); EOSINOPHILS % 0.9 % (0.0-7.0); LYMPHOCYTES % 25.3 % (15.0-51.0); MONOCYTES % 9.9 % (0.0-11.0); NEUTROPHILS % 63.4 % (39.0-77.0)
[2018-08-18 19:20] LABS: ADD UMIC NO; UR ASCORBIC ACID NEGATIVE (NEGATIVE); UR BACTERIA FEW /HPF (NONE SEEN); UR BILIRUBIN (Dip) NEGATIVE (NEGATIVE); UR BLOOD (Dip) NEGATIVE (NEGATIVE); UR CLARITY SLIGHTLY CLOUDY (CLEAR); UR COLOR YELLOW (YELLOW); UR GLUCOSE (Dip) NEGATIVE (NEGATIVE); UR KETONES (Dip) NEGATIVE (NEGATIVE); UR LEUKOCYTE ESTERASE (Dip) NEGATIVE Leu/ul (NEGATIVE); UR NITRITE (Dip) NEGATIVE (NEGATIVE); UR RBC 0 /HPF (0-5); UR SPECIFIC GRAVITY (Dip) 1.006 (1.003-1.030); UR TOTAL PROTEIN (Dip) NEGATIVE (NEGATIVE); UR UROBILINOGEN (Dip) NEGATIVE (NEGATIVE); UR WBC 1 /HPF (0-5)
[2018-08-18] MEDS: METOCLOPRAMIDE 10 MG INJ IV (19:31)
[2018-08-18] MEDS: FAMOTIDINE 20 MG TAB PO (19:55)
[2018-08-18] MEDS: LIDOCAINE/MYLANTA 40 ML BTL PO (19:55)
== END 2018-08-18 22:32 | disposition home or self-care (01) ==
LOC: E/R 16:49
DX: R10.13 Epigastric pain (principal); D69.6 Thrombocytopenia, unspecified; E11.9 Type 2 diabetes mellitus without complications; I10 Essential (primary) hypertension; Z79.4 Long term (current) use of insulin; Z79.82 Long term (current) use of aspirin
CPT/HCPCS: 74176; 80053; 81001; 81003; 83690; 84484; 85025; 93005; 96374; 99285-25